=== PATIENT | male | born 1995 | race Caucasian/White ===

== ENCOUNTER 2016-09-19 10:30 | Emergency (ER) | payer OTHER ==
[2016-09-19 10:45] VITALS: BP 119/69; PULSE 89; RESP 18; TEMP 99.4
[2016-09-19] MEDS ORDERED: PROPARACAINE 0.5% OPHTH DROPS 15 ML BTL ONE (11:00)
--- NOTE | 2016-09-19 11:11 | ED ---
General Adult HPI - General Chief complaint: Eye Problems Stated complaint: LEFT EYE PAIN Time Seen by Provider: 09/19/16 10:40 Source: patient, RN notes reviewed Mode of arrival: ambulatory Limitations: no limitations - History of Present Illness Initial comments: This is a 21-year-old male who presents to the emergency department complaining of left eye redness and itching. Patient states it started day and a half ago. Patient states he continues to get more irritated and now he is concerned that he might have scratched his cornea. Patient denies any blurred vision. Patient denies any headache. Patient states the right eye is becoming slightly red at this point to. Patient denies any fever or chills patient states there is some slight drainage. Patient denies any pain with movement of his eyes. - Related Data Previous Rx's Medication Instructions Recorded Ibuprofen [Motrin] 600 mg PO Q8HR PRN #30 tab 08/31/15 Allergies Allergy/AdvReac Type Severity Reaction Status Date / Time venom-honey bee Allergy Rash/Hives Verified 09/19/16 10:44 [bee venom (honey bee)] Review of Systems ROS Statement: Those systems with pertinent positive or pertinent negative responses have been documented in the HPI. ROS Other: All systems not noted in ROS Statement are negative. Past Medical History Past Medical History: No Reported History History of Any Multi-Drug Resistant Organisms: None Reported Past Surgical History: No Surgical Hx Reported Past Psychological History: No Psychological Hx Reported Smoking Status: Current every day smoker Past Alcohol Use History: None Reported Past Drug Use History: None Reported General Exam - General Exam Comments Initial Comments: GENERAL Patient is well-developed and well-nourished. Patient is in mild distress. EYES Patient's pupils are equal and round. Extraocular motion is intact. Conjunctiva is very injected in the left eye and slight injection of the right eye. I used fluorescein and proparacaine to examine the eye under UV light and there was no abrasions SKIN Unremarkable NEURO The patient is alert and oriented 3 PYSCH Patient has normal interpersonal interactions. Limitations: no limitations Course Vital Signs 09/19/16 10:42 Temperature 99.4 F Pulse Rate 89 Respiratory 18 Rate Blood Pressure 119/69 O2 Sat by Pulse 99 Oximetry Disposition Clinical Impression: Conjunctivitis Disposition: HOME SELF-CARE Instructions: Conjunctivitis (ED) Referrals: Tommie Bhagat Jr, DO [Primary Care Provider] - 1-2 days Time of Disposition: 11:11
[2016-09-19] MEDS ORDERED: PROPARACAINE 0.5% OPHTH DROPS 15 ML BTL LEFT EYE STA (11:26)
[2016-09-19] MEDS ORDERED: GENTAMICIN 0.3% OPHTH DROPS 5 ML BTL LEFT EYE SCH (13:00)
== END 2016-09-19 11:27 | disposition home or self-care (01) ==
LOC: EC 10:30
DX: H10.9 Unspecified conjunctivitis (principal); F17.200 Nicotine dependence, unspecified, uncomplicated; Z91.030 Bee allergy status
CPT/HCPCS: 99283

== ENCOUNTER 2017-06-23 04:05 | Emergency (ER) | payer SELFPAY ==
--- NOTE | 2017-06-23 04:59 | ED ---
Anxiety HPI - General Chief Complaint: Anxiety Stated Complaint: Anxiety Time Seen by Provider: 06/23/17 04:15 Source: patient Mode of arrival: ambulatory - History of Present Illness Initial Comments: This patient is a 21-year-old man who has history of previous anxiety, and states that he was having another episode of this this morning. The patient states that he was having some stress at home and then when he tried to sleep he noticed that his heart was racing, he was feeling short of breath, and he was anxious. He started pacing. MD Complaint: anxiety, heart racing, shortness of breath -: hour(s) Place: home Previous History of Same: Yes Severity: severe Quality: improving Provoking factors: none known Improves With: nothing Worsens With: nothing - Related Data Home Medications: Previous Rx's Medication Instructions Recorded Ibuprofen [Motrin] 600 mg PO Q8HR PRN #30 tab 08/31/15 Allergies/Adverse Reactions: Allergies Allergy/AdvReac Type Severity Reaction Status Date / Time venom-honey bee Allergy Rash/Hives Verified 09/19/16 10:44 [bee venom (honey bee)] Review of Systems ROS Statement: Those systems with pertinent positive or pertinent negative responses have been documented in the HPI. ROS Other: All systems not noted in ROS Statement are negative. Constitutional: Denies: fever Respiratory: Reports: dyspnea. Denies: cough, wheezes Cardiovascular: Reports: palpitations. Denies: chest pain, orthopnea, syncope Gastrointestinal: Denies: abdominal pain, nausea, vomiting Genitourinary: Denies: dysuria Musculoskeletal: Denies: back pain Skin: Denies: rash Neurological: Denies: headache Psychiatric: Reports: anxiety Past Medical History Past Medical History: No Reported History History of Any Multi-Drug Resistant Organisms: None Reported Past Surgical History: No Surgical Hx Reported Past Psychological History: No Psychological Hx Reported Smoking Status: Former smoker Past Alcohol Use History: None Reported Past Drug Use History: Marijuana General Exam Limitations: no limitations General appearance: alert, in no apparent distress, anxious Head exam: Present: atraumatic, normocephalic Respiratory exam: Present: normal lung sounds bilaterally. Absent: respiratory distress, wheezes, rales, rhonchi, stridor Cardiovascular Exam: Present: regular rate, normal rhythm, normal heart sounds. Absent: systolic murmur, diastolic murmur, rubs, gallop GI/Abdominal exam: Present: soft. Absent: distended, tenderness, guarding, rebound, mass Extremities exam: Present: normal inspection, normal capillary refill. Absent: pedal edema, calf tenderness Back exam: Present: normal inspection. Absent: CVA tenderness (R), CVA tenderness (L) Neurological exam: Present: alert, altered Skin exam: Present: warm, dry, intact, normal color. Absent: rash Course Vital Signs 06/23/17 06/23/17 04:13 06:21 Temperature 97.7 F 97.8 F Pulse Rate 99 78 Respiratory 18 16 Rate Blood Pressure 141/76 129/67 O2 Sat by Pulse 99 99 Oximetry Medical Decision Making - Medical Decision Making Patient's symptoms continue to improve. Chest x-ray and EKG negative. Patient to follow up for further outpatient care of anxiety. - EKG Data -: EKG Interpreted by Me EKG shows normal: sinus rhythm (With sinus arrhythmia rate, 72 bpm), axis ( Normal), intervals (Normal), QRS complexes (Normal), ST-T waves (Normal) Rate: normal Interpretation: normal EKG Disposition Clinical Impression: Panic attack Disposition: HOME SELF-CARE Condition: Good Instructions: Generalized Anxiety Disorder (ED) Is patient prescribed a controlled substance at d/c from ED?: No Referrals: Tommie Bhagat Jr, [Primary Care Provider] - 1-2 days
--- NOTE | 2017-06-23 05:23 | XR ---
EXAMINATION TYPE: XR chest 1V portable DATE OF EXAM: 06/23/2017 COMPARISON: 10/31/2010 HISTORY: Short of breath TECHNIQUE: Single frontal view of the chest is obtained. FINDINGS: Heart and mediastinum are normal. Lungs are clear. Diaphragm is normal. Bony thorax is int act. There are chest leads. IMPRESSION: Normal chest. No change.
[2017-06-23 06:22] VITALS: BP 129/67; PULSE 78; RESP 16; TEMP 97.8
== END 2017-06-23 06:21 | disposition home or self-care (01) ==
LOC: EC 04:05
DX: F41.0 Panic disorder [episodic paroxysmal anxiety] (principal); Z63.8 Other specified problems related to primary support group; Z87.891 Personal history of nicotine dependence; Z91.030 Bee allergy status
CPT/HCPCS: 71045; 93005; 99283

== ENCOUNTER 2018-02-04 19:18 | Emergency (ER) | payer OTHER ==
[2018-02-04 19:35] VITALS: RESP 16; TEMP 98.6
[2018-02-04] MEDS ORDERED: MORPHINE SULFATE 2 MG/ML SYRINGE IVP STA (19:49)
[2018-02-04] MEDS ORDERED: ONDANSETRON 4 MG/2 ML VIAL IVP STA (19:49)
[2018-02-04] MEDS ORDERED: DIPH,PERTUS(ACELL)TETVAC-LF 0.5 ML VIAL IM ONE (19:49)
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
[2018-02-04] MEDS ORDERED: TOPICAL SKIN ADHESIVE 1 EACH AMP TOPICAL ONE (21:20)
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
[2018-02-04] MEDS ORDERED: ACET/COD 300 MG/30 MG STARTER PACK 6 TAB BTL PO STA (22:05)
[2018-02-04 23:37] VITALS: BP 129/67; PULSE 93
== END 2018-02-04 22:44 | disposition home or self-care (01) ==
LOC: EC 19:18
DX: S01.21XA Laceration without foreign body of nose, initial encounter (principal); S00.83XA Contusion of other part of head, initial encounter; M54.2 Cervicalgia; F41.9 Anxiety disorder, unspecified; Z87.891 Personal history of nicotine dependence; Z91.030 Bee allergy status; Z79.899 Other long term (current) drug therapy; Z23 Encounter for immunization; V49.59XA Passenger injured in collision with other motor vehicles in traffic accident, initial encounter; Y92.410 Unspecified street and highway as the place of occurrence of the external cause
CPT/HCPCS: 72125; 70450; 90715; 99285; 12011; 96374; 96375; 90471; J2405; J2270

== ENCOUNTER 2019-01-02 11:00 | Emergency (ER) | payer OTHER ==
[2019-01-02 11:07] VITALS: BP 125/83; PULSE 86; RESP 18; TEMP 98.6
[2019-01-02] MEDS ORDERED: HYDROmorphone 1 MG/ML 1 ML SYRINGE IVP STA ×2 (11:28→12:57)
[2019-01-02] MEDS ORDERED: SODIUM CHLORIDE 0.9% 1,000 ML IV STA (11:28)
--- NOTE | 2019-01-02 11:38 | ED ---
Fall HPI - General Source: patient, RN notes reviewed, old records reviewed Mode of arrival: ambulatory <Nelsy Flor - Last Filed: 01/05/19 10:20> <Tami Zarate - Last Filed: 01/10/19 02:22> - General Chief Complaint: Fall Stated Complaint: fell off ladder-[facility] Time Seen by Provider: 01/02/19 11:16 - History of Present Illness Initial Comments: Patient is a 23-year-old male presents emergency department today after falling off approximately a 10 foot ladder. Patient reports that he was up to the top of a ladder when it slid. Patient reports that the majority of his fall was onto his face, hitting his teeth on the edge of the ladder. He reports he broke numerous teeth. He also states that he fell onto his left arm and complains of left forearm and wrist pain. Patient states that he had possible brief loss of consciousness. Patient has had no associated chest pain or abdominal pain denies any back pain. Does complain of some minor neck pain at this time. Patient states that he also fell onto his right knee. Patient has an abrasion over the knee. Patient is not on blood thinners. (Nelsy Flor) - Related Data Previous Rx's Medication Instructions Recorded HYDROcodone/APAP 5-325MG [[place] 1 tab PO Q6HR PRN 3 Days #12 tab 01/02/19 5-325] Allergies Allergy/AdvReac Type Severity Reaction Status Date / Time prednisone Allergy Dyspnea Verified 01/03/19 13:02 venom-honey bee Allergy Anaphylaxis Verified 01/03/19 13:02 [bee venom (honey bee)] Review of Systems ROS Other: All systems not noted in ROS Statement are negative. <Nelsy lFor - Last Filed: 01/05/19 10:20> ROS Other: All systems not noted in ROS Statement are negative. <Tami Zarate - Last Filed: 01/10/19 02:22> ROS Statement: Those systems with pertinent positive or pertinent negative responses have been documented in the HPI. Past Medical History Past Medical History: Asthma Additional Past Medical History / Comment(s): enlarged heart History of Any Multi-Drug Resistant Organisms: None Reported Past Surgical History: Tonsillectomy Past Psychological History: Anxiety Smoking Status: Former smoker Past Alcohol Use History: None Reported Past Drug Use History: Marijuana <Loretta Florily - Last Filed: 01/05/19 10:20> General Exam Limitations: no limitations General appearance: alert, in no apparent distress Head exam: Present: atraumatic, normocephalic, other (bruising over forehead. ). Absent: normal inspection Eye exam: Present: normal appearance, PERRL, EOMI. Absent: scleral icterus, conjunctival injection, periorbital swelling ENT exam: Present: other (broken teeth in front R upper tooth impacted into gum. Multiple broken teeth over bottom front with pulp exposed. ). Absent: normal exam Neck exam: Present: normal inspection, other (tenderness over cervical spine patient placed in C collar ). Absent: tenderness, meningismus, lymphadenopathy Respiratory exam: Present: normal lung sounds bilaterally. Absent: respiratory distress, wheezes, rales, rhonchi, stridor Cardiovascular Exam: Present: regular rate, normal rhythm, normal heart sounds. Absent: systolic murmur, diastolic murmur, rubs, gallop, clicks GI/Abdominal exam: Present: soft, normal bowel sounds. Absent: distended, tenderness, guarding, rebound, rigid Extremities exam: Present: normal inspection, full ROM, normal capillary refill. Absent: tenderness, pedal edema, joint swelling, calf tenderness Left Upper Arm exam: Present: normal inspection Elbow exam: Present: normal inspection, full ROM Forearm Wrist exam: Present: tenderness, swelling (over distal radius. ). Absent: normal inspection Hand Wrist exam: Present: normal inspection, full ROM Right Knee exam: Present: full ROM, tenderness, swelling ( is some minimal tenderness and swelling and a 2 cm abrasion over the right knee.). Absent: normal inspection Lower Leg exam: Present: normal inspection, full ROM Ankle exam: Present: normal inspection, tenderness Foot/Toe exam: Present: normal inspection, full ROM Neurovascular tendon exam: Present: no vascular compromise Back exam: Present: normal inspection Neurological exam: Present: alert, oriented X3, CN II-XII intact Psychiatric exam: Present: normal affect, normal mood Skin exam: Present: warm, dry, intact, normal color. Absent: rash <Nelsy Flor - Last Filed: 01/05/19 10:20> - General Exam Comments Initial Comments: 23-year-old male. Patient appears anxious. (Nelsy Flor) Course Vital Signs 01/02/19 11:04 Temperature 98.6 F Pulse Rate 86 Respiratory 18 Rate Blood Pressure 125/83 O2 Sat by Pulse 97 Oximetry Procedures - Orthopedic Splinting/Casting Injury #1 Side: left Upper Extremity Injury Location: wrist Upper Extremity Immobilizer: sugar tong splint <KatNelsy french - Last Filed: 01/05/19 10:20> - Orthopedic Splinting/Casting Injury #1 Additional Comments: Patient was reevaluated and neurovascularly intact. (Nelsy Flor) Medical Decision Making - Lab Data Result diagrams: 01/02/19 11:45 01/02/19 11:45 - Radiology Data Radiology results: report reviewed <Nelsy Flor - Last Filed: 01/05/19 10:20> - Lab Data Result diagrams: 01/02/19 11:45 01/02/19 11:45 <Tami Zarate - Last Filed: 01/10/19 02:22> - Medical Decision Making 23 year old male presents with multiple injury after fall from ladder at work. Patient fell approximately 10 feet and landed on ladder with dental trauma, R knee abrasion, L forearm pain and multiple abrasions. Patient was immediatelly placed in C collar. Patient has multiple intraoral small lacerations and broken bottom teeth. Patient R front tooth is impacted into the gum. Patient has abrasion over R knee, xray shows no fracture and he was placed in see wrap. CT brain, cspine and facial bones show no acture fracture on intracranial abnorm ality. Paitnet L forearm has broken distal radius. He is neurovascularly intact and placed in sugar tong splint. Discussed ortho follow up. Due to dental trauma, Dr. Zarate discussed case with Dr. Ignacio. Patient went directly to Dr. Jackson office for evaluation of multiple broken teeth and impacted front tooth. Given IV rocephin and IV dilaudid for pain control in ED. Patient is dischaged and going to oral surgeon. (Nelsy Flor) I was available for consultation in the emergency department. The history and physical exam were done by the midlevel provider. I was consulted for this patients care. I reviewed the case with the midlevel provider and based on their presentation of the patient, I agree with the assessment, medical decision making and plan of care as documented. I evaluated the patient myself and discussed the case with Dr. Ignacio who requested the patient go to his [place] office at 2 pm today for his dental injuries. Chart was dictated using [employer] dictation software. Attempts were made to correct any dictation errors however some typographical errors may persist. (Tami Zarate) - Lab Data Lab Results 01/02/19 01/02/19 01/02/19 Range/Units 11:45 11:45 11:45 WBC 7.2 (3.8-10.6) k/uL RBC 5.17 (4.30-5.90) m/uL Hgb 14.8 (13.0-17.5) gm/dL Hct 44.4 (39.0-53.0) % MCV 85.8 (80.0-100.0) fL MCH 28.6 (25.0-35.0) pg MCHC 33.3 (31.0-37.0) g/dL RDW 13.1 (11.5-15.5) % Plt Count 360 (150-450) k/uL Neutrophils % 65 % Lymphocytes % 25 % Monocytes % 5 % Eosinophils % 3 % Basophils % 1 % Neutrophils # 4.7 (1.3-7.7) k/uL Lymphocytes # 1.8 (1.0-4.8) k/uL Monocytes # 0.3 (0-1.0) k/uL Eosinophils # 0.2 (0-0.7) k/uL Basophils # 0.1 (0-0.2) k/uL PT 10.0 (9.0-12.0) sec INR 0.9 (<1.2) APTT 25.9 (22.0-30.0) sec Sodium 142 (137-145) mmol/L Potassium 4.0 (3.5-5.1) mmol/L Chloride 104 (98-107) mmol/L Carbon Dioxide 29 (22-30) mmol/L Anion Gap 9 mmol/L BUN 16 (9-20) mg/dL Creatinine 0.76 (0.66-1.25) mg/dL Est GFR (CKD-EPI)AfAm >90 (>60 ml/min/1.73 sqM) Est GFR (CKD-EPI)NonAf >90 (>60 ml/min/1.73 sqM) Glucose 102 H (74-99) mg/dL Calcium 9.7 (8.4-10.2) mg/dL Total Bilirubin 0.7 (0.2-1.3) mg/dL AST 21 (17-59) U/L ALT 36 (21-72) U/L Alkaline Phosphatase 54 (38-126) U/L Total Protein 7.3 (6.3-8.2) g/dL Albumin 4.6 (3.5-5.0) g/dL Serum Alcohol <10 mg/dL 01/02/19 14:16 EKG performed at 1203 showed normal sinus rhythm with sinus arrhythmia, nonspecific T-wave abnormality. Abnormal EKG. Ventricular 69 bpm. Verbal is 152 ms. Respirations 100 to most seconds. QT QTc is 392/426 ms. (Nelsy Flor) - Radiology Data Patient's chest x-ray is negative for any acute posterior manage changes. Forearm x-ray shows . Distal metaphyseal oblique radial fracture. Normal AP pelvis. Normal 3 view of the right knee. CT facial bones shows no evidence for the plate does breast her displaced facial bone fracture. CT of the brain shows no acute intracranial process. No evidence for acute fracture subluxation of cervical spine. (Nelsy Flor) Disposition Is patient prescribed a controlled substance at d/c from ED?: Yes If prescribed controlled substance>3 days was MAPS reviewed?: Prescribed <3 Days If opioid is for acute pain is fill amount 7 days or less?: Yes If Rx opioid, was Start Talking consent form obtained?: Yes Time of Disposition: 13:06 <Nelsy Flor - Last Filed: 01/05/19 10:20> <Tami Zarate - Last Filed: 01/10/19 02:22> Clinical Impression: Distal radius fracture, Dental trauma, Fall, Knee abrasion Disposition: HOME SELF-CARE Condition: Good Instructions (If sedation given, give patient instructions): Arm Fracture in A dults (ED) Additional Instructions: Please use medication as discussed. Likely Dr. Ignacio office at 2:00. Follow-up with learning support specialist as well. Remain in the splint. Please return to the emergency room if your symptoms increase or worsen or for any other concerns. Prescriptions: HYDROcodone/APAP 5-325MG [[place] 5-325] 1 tab PO Q6HR PRN 3 Days #12 tab PRN Reason: Pain Referrals: Tommie Bhagat Jr, [Primary Care Provider] - 1-2 days Vidal Ignacio DDS [STAFF PHYSICIAN] - 1-2 days Corey Ang MD [STAFF PHYSICIAN] - 1-2 days
--- NOTE | 2019-01-02 11:55 | CT ---
EXAMINATION TYPE: CT brain charlee duran DATE OF EXAM: 01/02/2019 COMPARISON: 01/27/2018 HISTORY: Fall from ladder, facial trauma, mouth CT DLP: 1300.[address] Brain: Unenhanced CT of the brain was performed. The ventricles, basal cisterns and sulci overlying the cerebral convexities demonstrate a normal appe arance. There is no evidence for intracranial hemorrhage or sulcal effacement. No mass effects are seen. If symptoms persist consider MRI. Osseous calvarium is intact. IMPRESSION: No acute intracranial process CT Cervical Spine: Unenhanced CT of the cervical spine was performed with bone and soft tissue window settings submitted . Coronal and sagittal reconstruction is obtained. There is normal alignment and prevertebral soft tissues. I do not see evidence for fracture or sublu xation. No significant degenerative changes are present. The lung apices are clear. IMPRESSION: No evidence for acute fracture or subluxation of the cervical spine.
--- NOTE | 2019-01-02 11:58 | CT ---
EXAMINATION TYPE: CT facial bones wo con DATE OF EXAM: 01/02/2019 COMPARISON: None HISTORY: Fall from ladder, facial trauma, mouth CT DLP: 758.[address] of the facial bones was performed in the axial and coronal planes. Bone and soft tissu e window settings are submitted. Soft tissue swelling noted about the lower mouth. I do not see evidence for displaced facial bone fracture or depressed facial bone fracture. The globes are intact. Mucous retention cyst at the base of the right maxillary sinus. IMPRESSION: 1. No evidence for depressed or displaced facial bone fracture.
[2019-01-02 12:12] LABS: Basophils # (A) 0.1 k/uL (0-0.2); Basophils % (A) 1 %; Eosinophils # (A) 0.2 k/uL (0-0.7); Eosinophils % (A) 3 %; HCT 44.4 % (39.0-53.0); HGB 14.8 gm/dL (13.0-17.5); Lymphocytes # (A) 1.8 k/uL (1.0-4.8); Lymphocytes % (A) 25 %; MCH 28.6 pg (25.0-35.0); MCHC 33.3 g/dL (31.0-37.0); MCV 85.8 fL (80.0-100.0); Mean Platelet Volume 6.3; Monocytes # (A) 0.3 k/uL (0-1.0); Monocytes % (A) 5 %; Neutrophils # (A) 4.7 k/uL (1.3-7.7); Neutrophils % (A) 65 %; Platelet Count 360 k/uL (150-450); RBC 5.17 m/uL (4.30-5.90); RDW 13.1 % (11.5-15.5); WBC 7.2 k/uL (3.8-10.6)
[2019-01-02 12:20] LABS: INR 0.9 (<1.2); Partial Thromboplastin Time 25.9 sec (22.0-30.0)
[2019-01-02 12:27] LABS: ALT 36 U/L (21-72); AST 21 U/L (17-59); African American GFR (CKD) >90 (>60 ml/min/1.73 sqM); Albumin 4.6 g/dL (3.5-5.0); Alcohol <10 mg/dL; Alkaline Phosphatase 54 U/L (38-126); Anion Gap 9 mmol/L; Blood Urea Nitrogen 16 mg/dL (9-20); Calcium 9.7 mg/dL (8.4-10.2); Carbon Dioxide 29 mmol/L (22-30); Chloride 104 mmol/L (98-107); Glucose 102 mg/dL (74-99); Non-African American GFR(CKD) >90 (>60 ml/min/1.73 sqM); Sodium 142 mmol/L (137-145); Total Bilirubin 0.7 mg/dL (0.2-1.3); Total Protein 7.3 g/dL (6.3-8.2)
--- NOTE | 2019-01-02 12:37 | XR ---
EXAMINATION TYPE: XR knee complete RT DATE OF EXAM: 01/02/2019 COMPARISON: None HISTORY: Fall, pain TECHNIQUE: Three-view right knee FINDINGS: No acute fractures are evident. No joint effusion is evident. Joint spaces are preserved. F ollow-up exams can be performed 7-10 days from acute trauma for continued pain. IMPRESSION: 1. Normal three-view right knee
--- NOTE | 2019-01-02 12:37 | XR ---
EXAMINATION TYPE: XR pelvis AP view DATE OF EXAM: 01/02/2019 COMPARISON: None HISTORY: fall, pain TECHNIQUE: AP pelvis FINDINGS: Femoral heads articulate with the acetabulum. Joint spaces are preserved. Symphysis pubis a nd sacroiliac joints are normal. IMPRESSION: 1. Normal AP pelvis
--- NOTE | 2019-01-02 12:39 | XR ---
EXAMINATION TYPE: XR forearm LT DATE OF EXAM: 01/02/2019 COMPARISON: None HISTORY: Fall, pain TECHNIQUE: 2 view left forearm FINDINGS: There is an oblique fracture extending through the metaphysis of the radius. Some intra-art icular extension along the ulnar aspect of the distal radius should be considered. No additional fractures are evident. Radius aligns normally with the humerus. IMPRESSION: 1. Distal metaphyseal oblique radial fracture.
--- NOTE | 2019-01-02 12:40 | XR ---
EXAMINATION TYPE: XR chest 1V portable DATE OF EXAM: 01/02/2019 COMPARISON: 06/23/2017 INDICATION: Trauma, fall from ladder, pain TECHNIQUE: Single frontal view of the chest is obtained. FINDINGS: The heart size is normal. The pulmonary vasculature is normal. The lungs are clear. No pneumothorax is evident. Osseous structures as visualized appear normal. IMPRESSION: 1. No acute posttraumatic changes.
[2019-01-02] MEDS ORDERED: cefTRIAXone IN SWFI 1,000 MG/10 ML SYRINGE IVP STA (13:01)
== END 2019-01-02 13:46 | disposition home or self-care (01) ==
LOC: EC 11:00
DX: S52.502A Unspecified fracture of the lower end of left radius, initial encounter for closed fracture (principal); S80.211A Abrasion, right knee, initial encounter; S09.93XA Unspecified injury of face, initial encounter; Z87.891 Personal history of nicotine dependence; Z91.030 Bee allergy status; Z88.8 Allergy status to other drugs, medicaments and biological substances; W11.XXXA Fall on and from ladder, initial encounter; Y92.69 Other specified industrial and construction area as the place of occurrence of the external cause; Y99.0 Civilian activity done for income or pay
CPT/HCPCS: 36415; 93005; 80053; 85025; 85610; 85730; 80320; 72170; 73090; 73562; 71045; 72125; 70486; 70450; 99284; 96374; 96375; 96376; 96361; J0696; J1170

== ENCOUNTER 2019-01-02 17:30 | Emergency (ER) | payer OTHER ==
[2019-01-02 17:49] VITALS: BP 145/92; PULSE 76; RESP 18; TEMP 97.9
[2019-01-02] MEDS ORDERED: ACET/COD 300 MG/30 MG STARTER PACK 6 TAB BTL PO STA (17:58)
--- NOTE | 2019-01-02 17:59 | ED ---
General Adult HPI - General Chief complaint: Recheck/Abnormal Lab/Rx Stated complaint: [facility] - post injury drug testing Time Seen by Provider: 01/02/19 17:58 Source: patient, RN notes reviewed, old records reviewed Mode of arrival: ambulatory Limitations: no limitations - History of Present Illness Initial comments: 23-year-old male patient presents to ED for chief complaint of urine drug screen. Patient was seen in this emergency department for fall and dental injury. Patient was diagnosed with a distal radius fracture and dental injury. Patient was discharged and went to go see the dentist. Patient returns for urine drug screen. Denies any other complaints. Denies any new or acute complaints. Systemic: Pt denies fatigue, fever/chills, rash. Pt denies weakness, night sweats, weight loss. Neuro: Pt denies headache, visual disturbances, syncope or pre-syncope. HEENT: Pt denies ocular discharge or irritation, otalgia, rhinorrhea, pharyngi tis or notable lymphadenopathy. Cardiopulmonary: Pt denies chest pain, SOB, heart palpitations, dyspnea on exertion. Abdominal/GI: Pt denies abdominal pain, n/v/d. : Pt denies dysuria, burning w/ urination, frequency/urgency. Denies new onset urinary or bowel incontinence. MSK: Pt denies myalgia, loss of strength or function in extremities. Neuro: Pt denies new onset weakness, paresthesias. - Related Data Previous Rx's Medication Instructions Recorded HYDROcodone/APAP 5-325MG [[place] 1 tab PO Q6HR PRN 3 Days #12 tab 01/02/19 5-325] Allergies Allergy/AdvReac Type Severity Reaction Status Date / Time prednisone Allergy Dyspnea Verified 01/02/19 11:25 venom-honey bee Allergy Anaphylaxis Verified 01/02/19 11:25 [bee venom (honey bee)] Review of Systems ROS Statement: Those systems with pertinent positive or pertinent negative responses have been documented in the HPI. ROS Other: All systems not noted in ROS Statement are negative. Past Medical History Past Medical History: Asthma Additional Past Medical History / Comment(s): enlarged heart History of Any Multi-Drug Resistant Organisms: None Reported Past Surgical History: Tonsillectomy Past Psychological History: Anxiety Smoking Status: Former smoker Past Alcohol Use History: None Reported Past Drug Use History: Marijuana General Exam - General Exam Comments Initial Comments: Constitutional: NAD, AOX3, Pt has pleasant affect. HEENT: NC/AT, trachea midline, neck supple, no lymphadenopathy. Posterior pharynx non erythematous, without exudates. External ears appear normal, without discharge. Mucous membranes moist. Eyes PERRLA, EOM intact. There is no scleral icterus. No pallor noted. Cardiopulmonary: RRR, no murmurs, rubs or gallops, no JVD noted. Lungs CTAB in anterior and posterior caban. No peripheral edema. Abdominal exam: Abdomen soft and non-distended. Abdomen non-tender to palpation in all 4 quadrants. Bowel sounds active in LLQ. No hepatosplenomegaly. No ecchymosis Neuro: CN II-XII grossly intact. No nuchal rigidity. No raccon eyes, no shetty sign, no hemotympanum. No cervical spinal tenderness. MSK: No posterior calf tenderness bilaterally, homans sign negative bilaterally. Posterior tibialis and radial pulse +2 bilaterally. Sensation intact in upper and lower extremities. Limitations: no limitations Course Vital Signs 01/02/19 17:45 Temperature 97.9 F Pulse Rate 76 Respiratory 18 Rate Blood Pressure 145/92 O2 Sat by Pulse 97 Oximetry Medical Decision Making - Medical Decision Making 23-year-old male patient presents to the chief complaint of urine dextran. Infection was obtained. Patient was in stable, afebrile. Physical exam didn't display any new pathology. Patient was prescribed analgesia as he is unable to obtain reviewed previous prescribed. Will discharge after UDS. Disposition Clinical Impression: Encounter for drug screening Disposition: HOME SELF-CARE Condition: Stable Additional Instructions: Follow-up with primary care provider and orthopedic consult tomorrow. Return to ER if condition worsens. Is patient prescribed a controlled substance at d/c from ED?: No Referrals: Tommie Bhagat Jr, [Primary Care Provider] - 1-2 days
== END 2019-01-02 18:25 | disposition home or self-care (01) ==
LOC: EC 17:30
DX: Z02.83 Encounter for blood-alcohol and blood-drug test (principal); Z88.8 Allergy status to other drugs, medicaments and biological substances; Z91.030 Bee allergy status; Z87.891 Personal history of nicotine dependence
CPT/HCPCS: 99282

== ENCOUNTER 2019-01-03 12:55 | Emergency (ER) | payer OTHER ==
[2019-01-03 13:02] VITALS: BP 133/78; PULSE 83; RESP 20; TEMP 97.5
--- NOTE | 2019-01-03 13:15 | ED ---
Fall HPI - General Chief Complaint: Fall Stated Complaint: knee & leg swelling-[facility] Time Seen by Provider: 01/03/19 13:03 Source: patient Mode of arrival: wheelchair Limitations: no limitations - History of Present Illness Initial Comments: 23-year-old male presents emergency Department with chief complaint of right leg, right knee pain. Patient states that he fell off a ladder yesterday. Patient had dental injury, left arm fracture and a small abrasion to his knee. Patient states that it was a little more painful today more swollen he was at orthopedics though he states he was therefore his left arm injury. He is advised he rechecked offers leg and will follow-up with orthopedics after. Patient denies any paresthesias. He is able to ambulate with minimal difficulty. - Related Data Previous Rx's Medication Instructions Recorded HYDROcodone/APAP 5-325MG [[place] 1 tab PO Q6HR PRN 3 Days #12 tab 01/02/19 5-325] Allergies Allergy/AdvReac Type Severity Reaction Status Date / Time prednisone Allergy Dyspnea Verified 01/03/19 13:02 venom-honey bee Allergy Anaphylaxis Verified 01/03/19 13:02 [bee venom (honey bee)] Review of Systems ROS Statement: Those systems with pertinent positive or pertinent negative responses have been documented in the HPI. ROS Other: All systems not noted in ROS Statement are negative. Past Medical History Past Medical History: Asthma Additional Past Medical History / Comment(s): enlarged heart History of Any Multi-Drug Resistant Organisms: None Reported Past Surgical History: Tonsillectomy Past Psychological History: Anxiety Smoking Status: Former smoker Past Alcohol Use History: None Reported Past Drug Use History: Marijuana General Exam Limitations: no limitations General appearance: alert, in no apparent distress Head exam: Present: atraumatic, normocephalic, normal inspection Eye exam: Present: normal appearance, PERRL, EOMI. Absent: scleral icterus, conjunctival injection, periorbital swelling ENT exam: Present: mucous membranes moist, TM's normal bilaterally. Absent: no rmal exam, normal oropharynx (Missing dentition noted, abrasions to the lip) Neck exam: Present: normal inspection, full ROM. Absent: tenderness, meningismus, lymphadenopathy Respiratory exam: Present: normal lung sounds bilaterally. Absent: respiratory distress, wheezes, rales, rhonchi, stridor Extremities exam: Present: other (Left arm in a short arm cast, neurovascular intact, right knee there is a small abrasion with no active bleeding, full range of motion there is moderate swelling no distal tib-fib tenderness) Neurological exam: Present: alert, oriented X3 Skin exam: Present: warm, dry, intact, normal color. Absent: rash Course Vital Signs 01/03/19 12:59 Temperature 97.5 F L Pulse Rate 83 Respiratory 20 Rate Blood Pressure 133/78 O2 Sat by Pulse 97 Oximetry Medical Decision Making - Medical Decision Making X-rays unremarkable. Patient has a right knee contusion, right knee sprain. Patient will follow-up with workman's comp and orthopedics Disposition Clinical Impression: Right knee sprain, Contusion of right knee, Fall Disposition: HOME SELF-CARE Condition: Stable Instructions (If sedation given, give patient instructions): Knee Pain (ED) Additional Instructions: Please return to the Emergency Department if symptoms worsen or any other concerns. Is patient prescribed a controlled substance at d/c from ED?: No Referrals: Tommie Bhagat Jr, DO [Primary Care Provider] - 1-2 days Fabian Reynolds DO [Doctor of Osteopathic Medicine] - 1-2 days Time of Disposition: 13:37
--- NOTE | 2019-01-03 13:23 | XR ---
EXAMINATION TYPE: XR knee complete RT DATE OF EXAM: 01/03/2019 CLINICAL HISTORY: pain TECHNIQUE: Three views of the right knee are obtained. COMPARISON: None. FINDINGS: There is no acute fracture/dislocation. The tri-compartment joint spaces appear within no rmal limits. The overlying soft tissue appears unremarkable. IMPRESSION: There is no acute fracture or dislocation.ICD 10 NO FRACTURE, INITIAL EVALUATION
== END 2019-01-03 13:59 | disposition home or self-care (01) ==
LOC: EC 12:55
DX: S83.91XA Sprain of unspecified site of right knee, initial encounter (principal); Z88.8 Allergy status to other drugs, medicaments and biological substances; Z91.030 Bee allergy status; Z87.891 Personal history of nicotine dependence; W11.XXXA Fall on and from ladder, initial encounter; Y92.69 Other specified industrial and construction area as the place of occurrence of the external cause; Y99.0 Civilian activity done for income or pay
CPT/HCPCS: 99283

== ENCOUNTER → 2019-01-26 | Outpatient (CLI) | payer OTHER ==
--- NOTE | 2019-01-26 15:08 | MR ---
EXAMINATION TYPE: MR knee RT wo con DATE OF EXAM: 01/26/2019 COMPARISON: Right knee radiographs dated 01/03/2019 and 01/13/2019 HISTORY: Right knee pain, fell off ladder TECHNIQUE: Multiplanar, multisequence imaging of the right knee is performed without IV contrast. FINDINGS: MEDIAL MENISCUS: Anterior and posterior horns are intact without tear. There is subtle increased sign al of the posterior horn of the medial meniscus, possibly small meniscal contusion given the inner kn ee pain and traumatic history. No linear continuity with an articular surface. LATERAL MENISCUS: Anterior and posterior horns are intact without tear. CRUCIATE LIGAMENTS: The anterior and posterior cruciate ligaments are intact. Increased signal of the mid and insertional fibers of the anterior cruciate ligament is compatible with low-grade sprain. No discontinuity. COLLATERAL LIGAMENTS: The medial collateral ligament and lateral collateral ligament complex are inta ct and unremarkable. EXTENSOR MECHANISM: Visualized quadriceps and patellar tendons are intact. EFFUSION: No significant suprapatellar joint effusion. POPLITEAL CYST: Very small popliteal cysts. TRICOMPARTMENT SPACES: Aligned and joint spaces are maintained CARTILAGE: Unremarkable BONE MARROW SIGNAL: Very minimal increased signal on PD sagittal image 16 and hypointensity on T1-nolvia ghted sagittal image 16 of the anterior patella relating to mild contusion and this patient with hist ory of recent trauma. Overlying mild prepatellar and infrapatellar subcutaneous edema. IMPRESSION: 1. Low-grade anterior cruciate ligament mid and insertional fiber sprain. 2. Subtle mild patellar contusion anteriorly with overlying subcutaneous prepatellar and infrapatella r edema. 3. Punctate focus of increased signal of the posterior horn of the medial meniscus that could relate to a meniscal contusion in this patient with inner knee pain and history of recent trauma. No menisca l tear seen.
== END | disposition home or self-care (01) ==
LOC: RADMRIMAIN 12:30
PROVIDERS: ATTEND Orthopaedic Surgery
DX: S83.511A Sprain of anterior cruciate ligament of right knee, initial encounter (principal)

== ENCOUNTER 2019-03-27 09:23 | Day surgery (SDC) | payer OTHER ==
[2019-03-24 11:36] VITALS: BMI 35.2
[~2019-03-27 09:23] MED LIST: LACTATED RINGERS 1,000 ML IV SCH; LIDOCAINE 1% 20 ML VIAL (10MG/ML) FOR IV START INTRADERMA PRN; MIDAZOLAM 2 MG/2 ML VIAL IV PRN
[2019-03-27 09:50] VITALS: TEMP 98.6
[2019-03-27] MEDS ORDERED: PROPOFOL 10 MG/ML 20 ML VIAL IV ONE (10:52)
[2019-03-27] MEDS ORDERED: LIDOCAINE 1% INJ 10MG/ML (20 ML MDV) ONE (10:52)
[2019-03-27] MEDS ORDERED: fentaNYL (PF) 50 MCG/ML 2 ML AMP ONE (10:52)
[2019-03-27] MEDS ORDERED: MIDAZOLAM 2 MG/2 ML VIAL ONE (10:52)
--- NOTE | 2019-03-27 10:57 | P.GSHP ---
History of Present Illness H&P Date: 03/27/19 Chief Complaint: GERD, GI bleed This a 21-year-old male presents today for EGD and colonoscopy. Patient issues.. He has also had some rectal bleeding. 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 - NO FURTHER PROBLEM" History of Any Multi-Drug Resistant Organisms: None Reported Past Surgical History: Tonsillectomy Additional Past Surgical History / Comment(s): DENTAL SURGERY , Past Anesthesia/Blood Transfusion Reactions: Family History of Problems w/ Anesthesia, Postoperative Nausea & Vomiting (PONV) Additional Past Anesthesia/Blood Transfusion Reaction / Comment(s): FAMILY- POST OP NAUSEA AND VOMITING Smoking Status: Former smoker - Past Family History Mother Family Medical History: No Reported History Medications and Allergies Home Medications Medication Instructions Recorded Confirmed Type No Known Home Medications 03/24/19 03/27/19 History Allergies Allergy/AdvReac Type Severity Reaction Status Date / Time prednisone Allergy Dyspnea Verified 03/27/19 09:54 venom-honey bee Allergy Anaphylaxis Verified 03/27/19 09:54 [bee venom (honey bee)] Surgical - Exam Vital Signs Temp Pulse Resp BP Pulse Ox 98.6 F 92 18 108/70 95 03/27/19 09:48 03/27/19 09:48 03/27/19 09:48 03/27/19 09:48 03/27/19 09:48 - General well developed, well nourished, no distress - Eyes PERRL - ENT normal pinna - Neck no masses - Respiratory normal expansion - Cardiovascular Rhythm: regular - Abdomen Abdomen: soft, non tender Assessment and Plan Assessment: GERD, GI bleed. We'll perform EGD and colonoscopy.
--- NOTE | 2019-03-27 11:19 | P.OP ---
Date of Procedure: 03/27/19 Preoperative Diagnosis: GERD GI bleed Postoperative Diagnosis: Antral gastritis Mild esophagitis Procedure(s) Performed: EGD Colonoscopy Anesthesia: MAC Surgeon: Venkata Enrique Pathology: other (Antrum, esophagus) Condition: stable Disposition: PACU Description of Procedure: The patient's placed on the endoscopy table in the lateral position. He received IV sedation. The gastroscope placed oropharynx passed in the esophagus and into the stomach. Scope was then placed through the pylorus. The first and second portion of the duodenum appeared normal. Scope summer back the antrum and this was mildly inflamed. A biopsies performed. The scope was then retroflexed the remainder of the stomach appeared normal. There was no significant hiatal hernia. The GE junction was at 40 cm. The distal esophagus was mildly inflamed a biopsies performed. The proximal esophagus appeared normal. Scope was withdrawn for patient. Next digital rectal exam was performed. There were internal hemorrhoids noted. The flexible colonoscope was then placed patient anus passed throughout the entire colon. The ileocecal valve was visually is. The cecum, ascending and transverse colon appeared normal. The descending and sigmoid colon appeared normal. Scope summer back the rectum and this appeared normal. Scope was withdrawn from the anus, internal hemorrhoids are noted. and withdrawn for patient.
[2019-03-27 11:51] VITALS: BP 112/74; PULSE 58; RESP 14
== END 2019-03-27 11:57 | disposition home or self-care (01) ==
LOC: ORWHC2ENDO 09:23
PROVIDERS: ATTEND Surgery
DX: K29.51 Unspecified chronic gastritis with bleeding (principal); K21.0 Gastro-esophageal reflux disease with esophagitis; K64.8 Other hemorrhoids; J45.909 Unspecified asthma, uncomplicated; I51.7 Cardiomegaly; K08.109 Complete loss of teeth, unspecified cause, unspecified class; Z87.440 Personal history of urinary (tract) infections; Z87.448 Personal history of other diseases of urinary system; Z90.89 Acquired absence of other organs; Z98.890 Other specified postprocedural states; Z87.891 Personal history of nicotine dependence; Z88.8 Allergy status to other drugs, medicaments and biological substances; Z91.030 Bee allergy status; Z84.89 Family history of other specified conditions
CPT/HCPCS: 88305; 45378; 43239; J2250; J2001; J3010; J2704

== ENCOUNTER → 2019-03-29 | Outpatient (CLI) | payer OTHER ==
--- NOTE | 2019-03-29 09:51 | NM ---
EXAMINATION TYPE: NM hepatobiliary w CCK DATE OF EXAM: 03/29/2019 COMPARISON: NONE INDICATION: Abdomen pain TECHNIQUE: After the intravenous administration of 4.95 mCi Tc 99m Mebrofenin hepatobiliary scintigra phy is performed. Images were obtained immediately post injection. FINDINGS: There is prompt uptake and excretion of radiotracer by the liver. Extrahepatic ducts are identified at 2 minutes. The gallbladder is visualized within 4 minutes. Small bowel activity is noted within 4 minutes. At one hour CCK was administered, patient was injected with 2.1 mcg of Kinevac, and gallbladder eject ion fraction is calculated at 94% %, which is elevated. (Normal >35% and <80%.). IMPRESSION: 1. Biliary hyperkinesia
== END | disposition home or self-care (01) ==
LOC: RADNMMAIN 07:38
PROVIDERS: ATTEND Surgery
DX: K82.8 Other specified diseases of gallbladder (principal)
CPT/HCPCS: 78227; A9537; J2805

== ENCOUNTER 2019-09-16 14:26 | Emergency (ER) | payer OTHER ==
[2019-09-16 14:32] VITALS: BP 114/75; PULSE 83; RESP 18; TEMP 98.4
--- NOTE | 2019-09-16 14:40 | ED ---
Allergic Reaction HPI - General Chief complaint: Allergic Reaction Stated complaint: R Ankle Pain, Beesting Time Seen by Provider: 09/16/19 14:36 Source: family Mode of arrival: ambulatory Limitations: no limitations - History of Present Illness Initial Comments: 24-year-old male presenting today for chief complaint of right ankle swelling. Patient states he was stung by a bee yesterday states this one at the area he states is now swollen distal to the sting on his ankle and foot. Patient denied any difficulty breathing entire body rash. He denies vomiting, diarrhea or abdominal pain. She denies any fevers. Denies distal complaints upon arrival patient appears well no signs of acute distress. - Related Data Previous Rx's Medication Instructions Recorded Cephalexin [Keflex] 500 mg PO Q6HR 3 Days #12 cap 09/16/19 Loratadine [Claritin] 10 mg PO DAILY 5 Days #5 tab 09/16/19 Allergies Allergy/AdvReac Type Severity Reaction Status Date / Time prednisone Allergy Dyspnea, Verified 04/12/19 13:24 makes him violent venom-honey bee Allergy Anaphylaxis Verified 04/12/19 13:24 [bee venom (honey bee)] Review of Systems ROS Statement: Those systems with pertinent positive or pertinent negative responses have been documented in the HPI. ROS Other: All systems not noted in ROS Statement are negative. Past Medical History Past Medical History: Asthma Additional Past Medical History / Comment(s): "enlarged heart " from past use of concerta, childhood asthma, "kidney reflux", fell off roof 12/2018-fx arm History of Any Multi-Drug Resistant Organisms: None Reported Past Surgical History: Tonsillectomy Additional Past Surgical History / Comment(s): oral surgery after fall 12/2018 Past Anesthesia/Blood Transfusion Reactions: Family History of Problems w/ Anesthesia, Motion Sickness, Postoperative Nausea & Vomiting (PONV) Additional Past Anesthesia/Blood Transfusion Reaction / Comment(s): FAMILY- POST OP NAUSEA AND VOMITING , pt "gets angry when coming out" Past Psychological History: ADD/ADHD, Anxiety, Bipolar, Depression, Panic Disorder Past Alcohol Use History: Occasional Past Drug Use History: Marijuana - Past Family History Mother Family Medical History: No Reported History General Exam - General Exam Comments Initial Comments: General: The patient is awake and alert, in no distress Eye: Pupils are equal, round and reactive to light, extra-ocular movements are intact. No nystagmus. There is normal conjunctiva bilaterally. No signs of icterus. Cardiovascular: There is a regular rate and rhythm. No murmur, rub or gallop is appreciated. Respiratory: Lungs are clear to auscultation, respirations are non-labored, breath sounds are equal. No wheezes, stridor, rales, or rhonchi. Musculoskeletal: Normal ROM, no tenderness. Strength 5/5. Sensation intact. Pulses equal bilaterally 2+. Neurological: A&O x 3. CN II-XII intact grossly, There are no obvious motor or sensory deficits. Coordination appears grossly intact. Speech is normal. Skin: Skin is warm and dry and no rashes. Small 1 cm area of redness with central punctate lesion. Patient has some mild diffuse redness distal to this area and swelling some mild warmth Psychiatric: Cooperative, appropriate mood & affect, normal judgment. Limitations: no limitations Course Vital Signs 09/16/19 14:27 Temperature 98.4 F Pulse Rate 83 Respiratory 18 Rate Blood Pressure 114/75 O2 Sat by Pulse 98 Oximetry Medical Decision Making - Medical Decision Making Swelling of the ankle foot distal to bee sting. Pt has no findings suggestive of anaphylaxis. Patient mostly has a local reaction be placed on Keflex to ensure no developing cellulitis although I feel this is unlikely given this is less than 24 hours after sting. Patient was instructed apply ice to the area he is to take Claritin during the day and Benadryl at night. Patient is to see PCP. Patient is agreeable to this care plan and discharge. Disposition Clinical Impression: Bee sting, Local reaction to bee sting Disposition: HOME SELF-CARE Condition: Good Instructions (If sedation given, give patient instructions): Insect Bite or Sting (ED), Anaphylaxis (ED) Additional Instructions: Please use medication as discussed. Please follow-up with family doctor in the next 2 days. Please return to emergency room if the symptoms increase or worsen or for any other concerns. Prescriptions: Loratadine [Claritin] 10 mg PO DAILY 5 Days #5 tab Cephalexin [Keflex] 500 mg PO Q6HR 3 Days #12 cap Is patient prescribed a controlled substance at d/c from ED?: No Referrals: Tommie Bhagat Jr, [Primary Care Provider] - 1-2 days Time of Disposition: 14:40
== END 2019-09-16 15:33 | disposition home or self-care (01) ==
LOC: EC 14:26
DX: T63.441A Toxic effect of venom of bees, accidental (unintentional), initial encounter (principal); Z88.8 Allergy status to other drugs, medicaments and biological substances; Z91.030 Bee allergy status
CPT/HCPCS: 99283

== ENCOUNTER 2020-01-29 13:43 | Emergency (ER) | payer OTHER ==
[2020-01-29 14:17] VITALS: TEMP 98.2
[2020-01-29] MEDS ORDERED: DIPH,PERTUS(ACELL)TETVAC-LF 0.5 ML VIAL IM ONE (14:52)
[2020-01-29] MEDS ORDERED: AMOXIC-POT CLAV 875MG STARTER PACK 2 TAB BTL PO STA (14:52)
[2020-01-29] MEDS ORDERED: FLUORESCEIN STRIPS 1 MG STRIP RIGHT EYE STA (14:53)
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
[2020-01-29] MEDS ORDERED: OFLOXACIN 0.3% OPHTH DROPS 5 ML BOTTLE RIGHT EYE STA (15:44)
[2020-01-29 16:18] VITALS: BP 120/81; PULSE 95; RESP 20
== END 2020-01-29 16:17 | disposition home or self-care (01) ==
LOC: EC 13:43
DX: S01.111A Laceration without foreign body of right eyelid and periocular area, initial encounter (principal); S05.01XA Injury of conjunctiva and corneal abrasion without foreign body, right eye, initial encounter; F17.200 Nicotine dependence, unspecified, uncomplicated; Z88.8 Allergy status to other drugs, medicaments and biological substances; Z91.030 Bee allergy status; Z23 Encounter for immunization; W55.03XA Scratched by cat, initial encounter
CPT/HCPCS: 90471; 90715; 99282

== ENCOUNTER 2021-02-14 20:15 | Emergency (ER) | payer OTHER ==
[2021-02-14 21:02] VITALS: BP 108/64; TEMP 99
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
[2021-02-14] MEDS ORDERED: SODIUM CHLORIDE 0.9% 50 ML IVPB ONE (23:00)
[2021-02-14] MEDS ORDERED: CASIRIVIMAB (REGN10933) (EUA) 600 MG, IMDEVIMAB (REGN10987) (EUA) 600 MG in SODIUM CHLO... IVPB ONE (23:00)
[2021-02-15 00:39] VITALS: PULSE 110; RESP 18
== END 2021-02-15 00:40 | disposition home or self-care (01) ==
LOC: EC 20:15
DX: U07.1 COVID-19 (principal); J45.909 Unspecified asthma, uncomplicated; F31.9 Bipolar disorder, unspecified; F41.0 Panic disorder [episodic paroxysmal anxiety]; F90.9 Attention-deficit hyperactivity disorder, unspecified type; Z87.891 Personal history of nicotine dependence; F12.90 Cannabis use, unspecified, uncomplicated; Z72.89 Other problems related to lifestyle
CPT/HCPCS: 87635; 99283; 96360; Q0244

== ENCOUNTER 2021-08-01 00:21 | Emergency (ER) | payer OTHER ==
[2021-08-01] MEDS ORDERED: LIDOCAINE 1% INJ 10MG/ML (10 ML MDV) SQ STA (04:19)
[2021-08-01] MEDS ORDERED: IBUPROFEN 600 MG TAB PO STA (04:23)
[2021-08-01] MEDS ORDERED: Acetaminophen-Codeine 300-30mg TAB PO STA (04:23)
[2021-08-01] MEDS ORDERED: LIDOCAINE 1% INJ 10MG/ML (20 ML MDV) SQ ONE (05:00)
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
[2021-08-01] MEDS ORDERED: LIDOCAINE 1% INJ 10MG/ML (5 ML VIAL-PF) SQ ONE (05:15)
[2021-08-01 06:10] VITALS: BP 115/71; PULSE 87; RESP 18; TEMP 97
== END 2021-08-01 06:15 | disposition home or self-care (01) ==
LOC: EC 00:21
DX: S01.419A Laceration without foreign body of unspecified cheek and temporomandibular area, initial encounter (principal); Z88.8 Allergy status to other drugs, medicaments and biological substances; Z91.030 Bee allergy status; J45.909 Unspecified asthma, uncomplicated; Z87.891 Personal history of nicotine dependence
CPT/HCPCS: 12014; 99283; J2001

== ENCOUNTER 2023-05-24 07:55 | Emergency (ER) | payer OTHER ==
[2023-05-24 08:23] VITALS: BP 126/83; PULSE 98; RESP 18; TEMP 97.6
--- NOTE | 2023-05-24 08:37 | ED ---
ENT HPI - General Chief complaint: Dental/Oral Stated complaint: Dental issue Time Seen by Provider: 05/24/23 08:10 Source: patient, RN notes reviewed Mode of arrival: ambulatory Limitations: no limitations - History of Present Illness Initial comments: 27-year-old male with history of dental caries presenting with upper right-sided dental pain x 2 days. States this feels similar to previous dental infections. Admits to mild swelling on the right side of his face. Denies lip/tongue swelling, neck swelling. He is able to tolerate orals well. Denies fever. States he currently has a dentist and will make an appointment, however he is requesting an antibiotic injection to start to treat the infection. Patient took Motrin 800 mg 45 minutes prior to arrival to ER which improved pain and swelling. - Related Data Previous Rx's Medication Instructions Recorded Cephalexin [Keflex] 500 mg PO Q6HR 3 Days #12 cap 09/16/19 Loratadine [Claritin] 10 mg PO DAILY 5 Days #5 tab 09/16/19 Amoxicillin/Potassium Clav 1 tab PO Q12HR #20 tab 01/29/20 [Augmentin 875-125 Tablet] Ofloxacin 0.3% Ophth Soln [Ocuflox 1 drops BOTH EYES QID 5 Days #15 ml 01/29/20 Ophth Soln] Amoxic-Pot Clav 875-125Mg 1 tab PO Q12HR #20 tab 05/24/23 [Augmentin 875-125] Ibuprofen [Motrin] 800 mg PO Q6HR #30 tab 05/24/23 Allergies Allergy/AdvReac Type Severity Reaction Status Date / Time prednisone Allergy Dyspnea, Verified 05/24/23 08:04 makes him violent venom-honey bee Allergy Anaphylaxis Verified 05/24/23 08:04 [bee venom (honey bee)] Review of Systems ROS Statement: Those systems with pertinent positive or pertinent negative responses have been documented in the HPI. ROS Other: All systems not noted in ROS Statement are negative. Past Medical History Past Medical History: Asthma Additional Past Medical History / Comment(s): "enlarged heart " from past use of concerta, childhood asthma, "kidney reflux", fell off roof 12/2018-fx arm, covid 01/28 antibody tx History of Any Multi-Drug Resistant Organisms: None Reported Past Surgical History: Tonsillectomy Additional Past Surgical History / Comment(s): oral surgery after fall 12/2018, overactive gallbladder Past Anesthesia/Blood Transfusion Reactions: Family History of Problems w/ Anesthesia, Motion Sickness, Postoperative Nausea & Vomiting (PONV) Additional Past Anesthesia/Blood Transfusion Reaction / Comment(s): FAMILY- POST OP NAUSEA AND VOMITING , pt "gets angry when coming out" Past Psychological History: ADD/ADHD, Anxiety, Bipolar, Depression, Panic Disorder Smoking Status: Former smoker Past Alcohol Use History: Occasional Past Drug Use History: Marijuana - Past Family History Mother Family Medical History: No Reported History General Exam Limitations: no limitations ENT exam: Present: normal exam, normal oropharynx, mucous membranes moist, TM's normal bilaterally, other (Mild erythema and tenderness to palpation along right upper gingiva. Dental caries present diffusely. No fluctuant mass or drainage present) Neck exam: Present: normal inspection. Absent: tenderness, meningismus, lymphadenopathy Respiratory exam: Present: normal lung sounds bilaterally. Absent: respiratory distress, wheezes, rales, rhonchi, stridor Cardiovascular Exam: Present: regular rate, normal rhythm, normal heart sounds. Absent: systolic murmur, diastolic murmur, rubs, gallop, clicks Psychiatric exam: Present: normal affect, normal mood Skin exam: Present: warm, dry, intact, normal color. Absent: rash Course Vital Signs 05/24/23 08:00 Temperature 97.6 F Pulse Rate 98 Respiratory 18 Rate Blood Pressure 126/83 O2 Sat by Pulse 97 Oximetry Medical Decision Making - Medical Decision Making Was pt. sent in by a medical professional or institution (, PA, METAL TURNER, urgent care, hospital, or residential...) When possible be specific @ -No Did you speak to anyone other than the patient for history (EMS, parent, family, police, friend...)? What history was obtained from this source @ -No Did you review nursing and triage notes (agree or disagree)? Why? @ -I reviewed and agree with nursing and triage notes Were old charts reviewed (outside hosp., previous admission, EMS record, old EKG, old radiological studies, urgent care reports/EKG's, residential records)? Report findings @ -No old charts were reviewed Differential Diagnosis (chest pain, altered mental status, abdominal pain women, abdominal pain men, vaginal bleeding, weakness, fever, dyspnea, syncope, headache, dizziness, GI bleed, back pain, seizure, CVA, palpatations, mental health, musculoskeletal)? @ -Dental abscess, dental caries, dental infection EKG interpreted by me (3pts min.). @ -None X-rays interpreted by me (1pt min.). @ -None done CT interpreted by me (1pt min.). @ -None done U/S interpreted by me (1pt. min.). @ -None done What testing was considered but not performed or refused? (CT, X-rays, U/S, labs)? Why? @ -None What meds were considered but not given or refused? Why? @ -Toradol was considered for pain management however patient took 800 mg of Motrin 45 minutes prior to arrival. Did you discuss the management of the patient with other professionals (professionals i.e. , PA, METAL TURNER, lab, RT, psych nurse, social work case manager, endoscopy technican, teacher, aerospace engineer officer armament, case management specialist)? Give summary @ -No Was smoking cessation discussed for >3mins.? @ -No Was critical care preformed (if so, how long)? @ -No Were there social determinants of health that impacted care today? How? (Homelessness, low income, unemployed, alcoholism, drug addiction, transportatio n, low edu. Level, literacy, decrease access to med. care, [facility], rehab)? @ -No Was there de-escalation of care discussed even if they declined (Discuss DNR or withdrawal of care, Hospice)? DNR status @ -No What co-morbidities impacted this encounter? (DM, HTN, Smoking, COPD, CAD, Cancer, CVA, ARF, Chemo, Hep., AIDS, mental health diagnosis, sleep apnea, morbid obesity)? @ -None Was patient admitted / discharged? Hospital course, mention meds given and route, prescriptions, significant lab abnormalities, going to OR and other pertinent info. @ -Was discharged. Patient was seen and evaluated for right-sided dental pain x 2 days. Patient is afebrile and there are no fluctuant masses present upon examination. Patient was given Rocephin injection, and prescribed Augmentin and ibuprofen. Instructed to follow-up with dentist. Strict return precautions discussed and patient shows understanding. Patient discharged in stable condition. Case discussed with Dr. Zarate. Undiagnosed new problem with uncertain prognosis? @ -No Drug Therapy requiring intensive monitoring for toxicity (Heparin, Nitro, Insulin, Cardizem)? @ -No Were any procedures done? @ -No Diagnosis/symptom? @ -Acute dental infection Acute, or Chronic, or Acute on Chronic? @ -Acute Uncomplicated (without systemic symptoms) or Complicated (systemic symptoms)? @ -Uncomplicated Side effects of treatment? @ -No Exacerbation, Progression, or Severe Exacerbation? @ -No Poses a threat to life or bodily function? How? (Chest pain, [place], [place], pneumonia, PE, COPD, DKA, ARF, appy, cholecystitis, CVA, Diverticulitis, Homicidal, S uicidal, threat to staff... and all critical care pts) @ -No Disposition Clinical Impression: Dental infection Disposition: HOME SELF-CARE Condition: Stable Instructions (If sedation given, give patient instructions): Dental Abscess (ED) Additional Instructions: Please follow-up with dentist for definitive treatment. Please return to the Emergency Department if symptoms worsen or any other concerns. Prescriptions: Amoxic-Pot Clav 875-125Mg [Augmentin 875-125] 1 tab PO Q12HR #20 tab Ibuprofen [Motrin] 800 mg PO Q6HR #30 tab Is patient prescribed a controlled substance at d/c from ED?: No Referrals: Tommie Bhagat Jr, DO [Primary Care Provider] - 1-2 days Time of Disposition: 08:29
[2023-05-24] MEDS: cefTRIAXone 1,000 MG VIAL (IM USE) IM STA (08:47)
== END 2023-05-24 08:51 | disposition home or self-care (01) ==
LOC: EC 07:55
DX: K04.7 Periapical abscess without sinus (principal); Z88.8 Allergy status to other drugs, medicaments and biological substances; Z91.030 Bee allergy status; Z87.891 Personal history of nicotine dependence; Z86.16 Personal history of COVID-19
CPT/HCPCS: 99282; 96372; J0696

== ENCOUNTER 2023-10-06 01:30 | Emergency (ER) | payer OTHER ==
[2023-10-06 01:52] VITALS: RESP 18
--- NOTE | 2023-10-06 02:05 | ED ---
ENT HPI - General Chief complaint: Dental/Oral Stated complaint: dental pain Time Seen by Provider: 10/06/23 01:52 Source: patient Mode of arrival: ambulatory Limitations: no limitations - History of Present Illness Initial comments: This is a 28-year-old male who presents to the emergency department for dental pain. Reports right-sided dental pain for the last few days. States that he has a broken tooth with an exposed nerve root that is often painful and frequently gets infected. He has started to notice swelling over the last few days and is concerned about getting another infection. States that he responds well with antibiotics. He made an appointment with a dentist but is unable to see them until next month. Alternating with Tylenol and ibuprofen which is somewhat helpful. Denies any fevers or chills. MD complaint: tooth pain - Related Data Previous Rx's Medication Instructions Recorded Cephalexin [Keflex] 500 mg PO Q6HR 3 Days #12 cap 09/16/19 Loratadine [Claritin] 10 mg PO DAILY 5 Days #5 tab 09/16/19 Amoxicillin/Potassium Clav 1 tab PO Q12HR #20 tab 01/29/20 [Augmentin 875-125 Tablet] Ofloxacin 0.3% Ophth Soln [Ocuflox 1 drops BOTH EYES QID 5 Days #15 ml 01/29/20 Ophth Soln] Amoxic-Pot Clav 875-125Mg 1 tab PO Q12HR #20 tab 05/24/23 [Augmentin 875-125] Ibuprofen [Motrin] 800 mg PO Q6HR #30 tab 05/24/23 Amoxic-Pot Clav 875-125Mg 1 tab PO Q12HR 10 Days #20 tab 10/06/23 [Augmentin 875-125] Ibuprofen 800 mg PO Q8H PRN #30 tab 10/06/23 Allergies Allergy/AdvReac Type Severity Reaction Status Date / Time prednisone Allergy Dyspnea, Verified 10/06/23 01:52 makes him violent venom-honey bee Allergy Anaphylaxis Verified 10/06/23 01:52 [bee venom (honey bee)] Review of Systems ROS Statement: Those systems with pertinent positive or pertinent negative responses have been documented in the HPI. ROS Other: All systems not noted in ROS Statement are negative. Past Medical History Past Medical History: Asthma Additional Past Medical History / Comment(s): "enlarged heart " from past use of concerta, childhood asthma, "kidney reflux", fell off roof 12/2018-fx arm, covid 01/28 antibody tx History of Any Multi-Drug Resistant Organisms: None Reported Past Surgical History: Tonsillectomy Additional Past Surgical History / Comment(s): oral surgery after fall 12/2018, overactive gallbladder Past Anesthesia/Blood Transfusion Reactions: Family History of Problems w/ Anesthesia, Motion Sickness, Postoperative Nausea & Vomiting (PONV) Additional Past Anesthesia/Blood Transfusion Reaction / Comment(s): FAMILY- POST OP NAUSEA AND VOMITING , pt "gets angry when coming out" Past Psychological History: ADD/ADHD, Anxiety, Bipolar, Depression, Panic Disorder Smoking Status: Current every day smoker, Vaper Past Alcohol Use History: Occasional Past Drug Use History: Marijuana - Past Family History Mother Family Medical History: No Reported History General Exam Limitations: no limitations General appearance: alert, in no apparent distress Head exam: Present: atraumatic, normocephalic, normal inspection ENT exam: Present: other (Multiple dental caries with minor fullness over the right side of the face. No elevation of the tongue or swelling to the floor of the mouth.) Respiratory exam: Present: normal lung sounds bilaterally. Absent: respiratory distress, wheezes, rales, rhonchi, stridor Cardiovascular Exam: Present: regular rate, normal rhythm, normal heart sounds. Absent: systolic murmur, diastolic murmur, rubs, gallop, clicks Neurological exam: Present: alert, oriented X3, CN II-XII intact Psychiatric exam: Present: normal affect, normal mood Skin exam: Present: warm, dry, intact, normal color. Absent: rash Course Vital Signs 10/06/23 01:49 Temperature 98.3 F Pulse Rate 89 Respiratory 18 Rate Blood Pressure 131/84 O2 Sat by Pulse 98 Oximetry Medical Decision Making - Medical Decision Making This is a 28-year-old male who presents to the emergency department for right- sided dental pain. Was pt. sent in by a medical professional or institution? @ -No Did you speak to anyone other than the patient for history? @ -No Did you review nursing and triage notes? @ -Yes, and I agree, it is accurate with regards to the patient's symptoms. Were old charts reviewed? @ -No Differential Diagnosis? @ -Differential Dental Pain: Dental abscess, chipped tooth, dental carries, davin's angina, trigeminal neuralgia, this is not meant to be an all-inclusive list. EKG interpreted by me (3pts min.)? @ -Not obtained X-rays interpreted by me (1pt min.)? @ -Not obtained CT interpreted by me (1pt min.)? @ -Not obtained U/S interpreted by me (1pt. min.)? @ -Not obtained What testing was considered but not performed? (CT, X-rays, U/S, labs)? Why? @ -None What meds were considered but not given? Why? @ -None Did you discuss the management of the patient with other professionals? @ -No Did you reconcile home meds? @ -No Was smoking cessation discussed for >3mins.? @ -No Was critical care preformed (if so, how long)? @ -No Were there social determinants of health that impacted care today? How? (Homelessness, low income, unemployed, alcoholism, drug addiction, transportation, low edu. Level, literacy, decrease access to med. care, care home, rehab)? @ -No Was there de-escalation of care discussed even if they declined? (Discuss DNR or withdrawal of care, Hospice)? @ -No What co-morbidities impacted this encounter? (DM, HTN, Smoking, COPD, CAD, Cancer, CVA, Hep., AIDS, mental health diagnosis, sleep apnea, morbid obesity)? @ -None Was patient admitted / discharged? @ -Discharged. Physical exam suggestive of infection. He had no elevation of the tongue or swelling to the floor of the mouth to suggest progression to Davin's angina. Rx for Augmentin and ibuprofen provided. Initial dose along with Toradol administered in the emergency department. Patient discharged home in stable condition and will follow-up with his dentist. Case discussed with ED attending Dr. Bruce. Return precautions reviewed in depth, the patient is instructed to return to the emergency department with any new, worsening, or concerning symptoms. Patient verbalized understanding. Undiagnosed new problem with uncertain prognosis? @ -None Drug Therapy requiring intensive monitoring for toxicity (Heparin, Nitro, Insulin, Cardizem)? @ -None Were any procedures done? @ -None Diagnosis/symptom? @ -Dental infection Acute, or Chronic, or Acute on Chronic? @ -Acute Uncomplicated (without systemic symptoms) or Complicated (systemic symptoms)? @ -Uncomplicated Side effects of treatment? @ -None Exacerbation, Progression, or Severe Exacerbation] @ -Not applicable Poses a threat to life or bodily function? @ -No Disposition Clinical Impression: Dental infection Disposition: HOME SELF-CARE Instructions (If sedation given, give patient instructions): Dental Abscess (ED), Toothache (ED) Additional Instructions: Return to the emergency department with any new, worsening, or concerning symptoms. Take the antibiotic as prescribed for 10 days. Continue to alternate with ibuprofen and Tylenol for pain relief. Follow-up with your dentist. Prescriptions: Amoxic-Pot Clav 875-125Mg [Augmentin 875-125] 1 tab PO Q12HR 10 Days #20 tab Ibuprofen 800 mg PO Q8H PRN #30 tab PRN Reason: Pain Is patient prescribed a controlled substance at d/c from ED?: No Referrals: Tommie Bhagat Jr, DO [Primary Care Provider] - 1-2 days Time of Disposition: 02:05
[2023-10-06] MEDS: ACET/COD 300 MG/30 MG STARTER PACK 6 TAB BTL PO STA (02:09)
[2023-10-06] MEDS: KETOROLAC 15 MG/ML 1 ML VIAL IM STA (02:10)
[2023-10-06] MEDS: AMOXIC-POT CLAV 875-125MG 1 EACH TAB PO STA (02:10)
[2023-10-06 02:17] VITALS: BP 123/81; PULSE 78; TEMP 98.1
== END 2023-10-06 02:53 | disposition home or self-care (01) ==
LOC: EC 01:30
DX: K08.89 Other specified disorders of teeth and supporting structures
CPT/HCPCS: 96372; 99283